=== PATIENT | female | born 1960 | race Two or more races ===

== ENCOUNTER 2022-01-10 01:59 | Emergency (ER) | payer MEDICAID ==
[~2022-01-10] VITALS: Ht 149.9 cm; Wt 60.0 kg
[2022-01-10] MEDS ORDERED: ACETAMINOPHEN 500 MG TABLET PO ONE (02:15)
[2022-01-10] MEDS ORDERED: LIDOCAINE 5% TRANSDERMAL PATCH TD ONE (02:15)
[2022-01-10] MEDS ORDERED: SODIUM CHLORIDE 0.9% 1,000 ML IV ONE (02:15)
[2022-01-10] MEDS ORDERED: KETOROLAC TROMETHAMINE 30 MG/ML VIAL IVP ONE (02:15)
[2022-01-10 02:16] LABS: GLUCOSE,POINT OF CARE 105 MG/DL (70-110)
[2022-01-10] MEDS ORDERED: SODIUM CHLORIDE 0.9% 100 ML ONE (02:23)
[2022-01-10] MEDS ORDERED: IOHEXOL 300 MG/ML 100 ML VIAL ONE (02:23)
[2022-01-10 02:44] LABS: BASOPHILS % (AUTO) 0.4 % (0.0-2.0); EOSINOPHILS % (AUTO) 1.2 % (1.0-6.0); HEMOGLOBIN 12.2 g/dL (12.0-16.0); LYMPHOCYTES % (AUTO) 33.6 % (22.0-44.0); MEAN CORPUSCULAR HEMOGLOBIN 28.3 pg (26.0-34.0); MEAN CORPUSCULAR HGB CONC 32.8 G/dL (31.0-37.0); MEAN CORPUSCULAR VOLUME 86 fL (80-100); NEUTROPHILS # (AUTO) 4.9 K/uL (1.8-7.7); NEUTROPHILS % (AUTO) 53.8 % (40.0-70.0); PLATELET COUNT (AUTO) 229 K/uL (150-450); RED CELL DISTRIBUTION WIDTH 14.5 % (11.5-14.5)
[2022-01-10 02:47] LABS: ANION GAP 11 mmol/L (8-16); CALCIUM, TOTAL 9.6 mg/dL (8.8-10.5); CARBON DIOXIDE 27 mmol/L (22-29); CHLORIDE 103 mmol/L (98-107); CREATININE 0.67 mg/dL (0.60-1.30); GLUCOSE,RANDOM 133 mg/dL (70-110); POTASSIUM 3.6 mmol/L (3.5-5.1); SODIUM SERUM 141 mmol/L (136-145); UREA NITROGEN, BLOOD 22 mg/dL (7-18)
[2022-01-10 02:48] LABS: GLOMERULAR FILTR. RATE CALC > 60 mL/min (>60)
[2022-01-10 02:53] LABS: ALANINE AMINOTRANSFERASE 19 U/L (12-78); ALBUMIN 3.7 g/dL (3.4-5.0); ALKALINE PHOSPHATASE 83 U/L (46-116); ASPARTATE AMINOTRANSFERASE 18 U/L (15-37); BILIRUBIN,TOTAL 0.3 mg/dL (0.1-1.0); LIPASE 148 U/L (73-393); TOTAL PROTEIN, SERUM 7.6 g/dL (6.4-8.2)
[2022-01-10 04:48] LABS: APPEARANCE,URINE CLEAR (CLEAR); BILIRUBIN,URINE NEGATIVE (NEGATIVE); GLUCOSE, URINE (UA) >=1000 mg/dL (NEGATIVE); KETONES,URINE 40-60 mg/dL (NEGATIVE); LEUKOCYTE ESTERASE ,URINE NEGATIVE (NEGATIVE); NITRATE,URINE POSITIVE (NEGATIVE); OCCULT BLOOD,URINE NEGATIVE (NEGATIVE); PROTEIN,URINE NEGATIVE (NEGATIVE); SPECIFIC GRAVITIY, URINE 1.045 (1.003-1.030); UROBILINOGEN,URINE <=1.0 mg/dL (<=1.0)
[2022-01-10 04:59] LABS: BACTERIA,URINE Moderate /HPF (None Seen); RBC,URINE None Seen /HPF (0-2); TRANSITIONAL EPI CELLS,URINE Rare /LPF (None Seen); WBC,URINE 0-2 /HPF (0-5)
[2022-01-10] MEDS ORDERED: CEPH-558 PO (05:39)
[2022-01-10] MEDS ORDERED: CEPHALEXIN MONOHYDRATE 500 MG CAPSULE PO ONE (05:45)
[2022-01-10 07:57] VITALS: BP 117/53
== END 2022-01-10 07:59 | disposition home or self-care (01) ==
LOC: EMS 01:59
DX: N12 Tubulo-interstitial nephritis, not specified as acute or chronic (principal); K52.9 Noninfective gastroenteritis and colitis, unspecified; E11.9 Type 2 diabetes mellitus without complications
CPT/HCPCS: 99285; 74177; 96374; 96361; 80053; 81001; 82962; 83690; 85025; 36415; 87086; 87186; J1885; J7030; J7050; Q9967